=== PATIENT | male | born 1955 | race Caucasian/White ===

== ENCOUNTER 2018-12-14 10:12 | Emergency (ER) | payer BC ==
[2018-12-14 10:45] VITALS: BP 130/84
--- NOTE | 2018-12-14 10:49 | UC ---
General HPI - HPI Summary HPI Summary: removed an engorged tick from the back of his L shoulder last pm. head may still be there. - History of Current Complaint Stated Complaint: TICK Time Seen by Provider: 12/14/18 10:40 Hx Obtained From: Patient Associated Signs & Symptoms: Negative: Fever - Allergy/Home Medications Allergies/Adverse Reactions: Allergies Allergy/AdvReac Type Severity Reaction Status Date / Time No Known Allergies Allergy Verified 12/14/18 10:39 Home Medications: Home Medications Atorvastatin* [Lipitor*] 10 mg PO DAILY 12/14/18 [History Confirmed 12/14/18] Dutasteride 0.5 mg PO DAILY 12/14/18 [History Confirmed 12/14/18] Olmesartan (NF) [Benicar (NF)] 5 mg PO DAILY 12/14/18 [History Confirmed ] Tamsulosin CAP* [Flomax CAP*] 0.4 mg PO BEDTIME 12/14/18 [History Confirmed ] PMH/Surg Hx/FS Hx/Imm Hx - Additional Past Medical History Additional PMH: BPH Endocrine History: Dyslipidemia - Family History Known Family History: Positive: Non-Contributory - Social History Lives: With Family Review of Systems All Other Systems Reviewed And Are Negative: No Constitutional: Negative: Fever, Chills, Fatigue Skin: Negative: Rash Musculoskeletal: Negative: Arthralgia Physical Exam Triage Information Reviewed: Yes Appearance: Well-Appearing Vital Signs Reviewed: Yes Eyes: Positive: Conjunctiva Clear Respiratory: Positive: No respiratory distress Neurological: Positive: Alert Psychological: Positive: Age Appropriate Behavior Skin Exam: Normal, Other - Abrasion to back on L upper back/shoulder area where tick removed. no bullseye. ? tiny black spec. Course/Dx - Course Course Of Treatment: benefit or digging at tiny black spec does not outweigh risk of tissue trauma. - Diagnoses Provider Diagnosis: Tick bite Discharge - Sign-Out/Discharge Documenting (check all that apply): Patient Departure All imaging exams completed and their final reports reviewed: No Studies - Discharge Plan Condition: Stable Disposition: HOME Prescriptions: DOXYcycline CAP(*) [DOXYcycline 100MG CAP(*)] 200 mg PO ONCE #1 cap Patient Education Materials: Tick Bite (ED) Referrals: Jaguar Yun DO [Primary Care Provider] - If Needed - Billing Disposition and Condition Condition: STABLE Disposition: Home
== END 2018-12-14 10:56 | disposition home or self-care (01) ==
LOC: UCCORT 10:12
DX: T63.481A Toxic effect of venom of other arthropod, accidental (unintentional), initial encounter (principal); Y92.9 Unspecified place or not applicable
CPT/HCPCS: 99202; G0463